=== PATIENT | female | born 1980 | race Caucasian/White ===

== ENCOUNTER 2016-12-15 08:11 | Day surgery (SDC) | payer OTHER ==
[~2016-12-15] VITALS: Ht 167.6 cm; Wt 70.7 kg
[2016-12-15] MEDS ORDERED: ALBUTEROL S0.4 MG/ML PO (08:37)
[2016-12-15] MEDS ORDERED: RT ADVAIR HFA 412 GM IH (08:38)
[2016-12-15] MEDS ORDERED: ALLEGRA ALLERGY60 MG PO (08:39)
[2016-12-15] MEDS ORDERED: SINGULAIR 110 MG/TAB PO (08:40)
[2016-12-15] MEDS ORDERED: VITAMIN D 50,1.25 MG PO (08:40)
[2016-12-15 08:43] VITALS: BP 99/70; PULSE 80; TEMP 97
[2016-12-15 10:15] VITALS: BP 101/62; PULSE 56; TEMP 97.1
[2016-12-15 10:30] VITALS: BP 95/53; PULSE 53
[2016-12-15] MEDS ORDERED: LEVSIN0.125 M1 PO (10:30)
[2016-12-15] MEDS ORDERED: BENEFIBER PO (10:31)
[2016-12-15 10:45] VITALS: BP 94/62; PULSE 56
== END 2016-12-15 11:10 | disposition home or self-care (01) ==
LOC: SDCO 08:11
DX: D12.4 Benign neoplasm of descending colon (principal); D12.3 Benign neoplasm of transverse colon; D12.5 Benign neoplasm of sigmoid colon; K64.0 First degree hemorrhoids; K59.09 Other constipation; R03.0 Elevated blood-pressure reading, without diagnosis of hypertension
CPT/HCPCS: OP; J2250; J2405; J3010; J7030